=== PATIENT | female | born 1970 | race Caucasian/White ===

== ENCOUNTER 2019-04-27 13:33 | Outpatient (CLI) | payer MEDICAID | END 2019-04-27 13:34 | disposition critical access hospital (66) | LOC: EMS 13:33 | PROVIDERS: ATTEND Surgery | DX: R07.89 Other chest pain (principal); R11.0 Nausea; R06.09 Other forms of dyspnea | CPT/HCPCS: A0425; A0427; A0999 ==

== ENCOUNTER 2019-04-27 14:00 | Emergency (ER) | payer MEDICAID ==
[2019-04-27 14:31] LABS: BASOPHILS % (AUTO) 0.4 %; EOSINOPHILS % (AUTO) 0.4 %; HGB - HEMOGLOBIN 12.3 g/dL (12.0-16.0); LYMPHOCYTES # (AUTO) 2.3 10^3/uL (1.5-3.5); LYMPHOCYTES % (AUTO) 46.9 %; MEAN CORPUSCULAR HEMOGLOBIN 30.7 pg (27.0-31.0); MEAN CORPUSCULAR HGB CONC 33.2 g/dL (32.0-36.0); MEAN CORPUSCULAR VOLUME 92.3 fL (81.0-99.0); MONOCYTES # (AUTO) 0.3 10^3/uL (0.0-1.0); MONOCYTES % (AUTO) 5.8 %; NEUTROPHILS # (AUTO) 2.2 10^3/uL (1.5-6.6); NEUTROPHILS % (AUTO) 46.3 %; PLT - PLATELET COUNT 205 10^3/uL (130-450); RED BLOOD COUNT 4.01 10^6/uL (4.20-5.40); RED CELL DISTRIBUTION WIDTH 13.3 % (12.0-15.0); WHITE BLOOD COUNT 4.8 x10^3/uL (4.8-10.8)
[2019-04-27] MEDS ORDERED: METOPROLOL 5 MG/5 ML VIAL IVP STA ×2 (14:31→15:18)
--- NOTE | 2019-04-27 14:32 | ED Physician Documentation ---
PD HPI CHEST PAIN - Stated complaint Stated Complaint: CP - Chief complaint Chief Complaint: Cardiac - History obtained from History obtained from: Patient (This is a marta 48-year-old woman whose had intermittent sometimes exertional and sometimes a month. It happens maybe every other day and last 10 to 20 minutes at a time. It is pretty typical, substernal chest pressure radiating to the anterior left shoulder, she gets dizzy and weak with it. She is currently pain-free. She has no personal history of heart disease but has a pretty bad family history including a brother with an NH at approximately age 50, a mom with an NH at age 50, a dad who of heart disease at 49.) Review of Systems Ten Systems: 10 systems reviewed and negative Constitutional: denies: Fever, Chills Nose: denies: Rhinorrhea / runny nose, Congestion Throat: denies: Dental pain / toothache, Sore throat Cardiac: reports: Chest pain / pressure. denies: Palpitations, Pedal edema, Calf pain Respiratory: denies: Dyspnea PD PAST MEDICAL HISTORY - Allergies Allergies/Adverse Reactions: Allergies Allergy/AdvReac Type Severity Reaction Status Date / Time No Known Drug Allergies Allergy Verified 04/27/19 14:04 PD ED PE NORMAL - Vitals Vital signs reviewed: Yes - General General: Alert and oriented X 3, No acute distress - HEENT HEENT: PERRL, EOMI - Neck Neck: Supple, no meningeal sign, No bony TTP - Cardiac Cardiac: RRR, No murmur - Respiratory Respiratory: No respiratory distress, Clear bilaterally - Abdomen Abdomen: Soft, Non tender - Extremities Extremities: No deformity, No edema, No calf tenderness / cord - Neuro Neuro: Normal speech - Psych Psych: Normal mood, Normal affect Results - Vitals Vitals: Vital Signs - 24 hr 04/27/19 04/27/19 14:00 16:00 Temperature 36.6 C Heart Rate 67 68 Respiratory 15 16 Rate Blood Pressure 132/77 H 133/71 H O2 Saturation 100 99 Oxygen O2 Source Room air - Labs Labs: Laboratory Tests 04/27/19 04/27/19 04/27/19 14:27 14:27 14:27 WBC 4.8 RBC 4.01 L Hgb 12.3 Hct 37.0 MCV 92.3 MCH 30.7 MCHC 33.2 RDW 13.3 Plt Count 205 MPV 11.0 H Neut # (Auto) 2.2 Lymph # (Auto) 2.3 [place] # (Auto) 0.3 Eos # (Auto) 0.0 Baso # (Auto) 0.0 Absolute Nucleated RBC 0.00 Nucleated RBC % 0.0 Sodium 142 Potassium 2.7 L Chloride 108 Carbon Dioxide 21 Anion Gap 13.0 BUN 8 Creatinine 0.6 Estimated GFR (MDRD) 108 Glucose 89 Calcium 9.0 Total Bilirubin 0.7 AST 25 ALT 20 Alkaline Phosphatase 60 Troponin I High Sens < 2.3 L Total Protein 7.6 Albumin 4.1 Globulin 3.5 Albumin/Globulin Ratio 1.2 Lipase 27 - Rads (name of study) CCTA Chest Radiology: Final report received (no CAD) PD MEDICAL DECISION MAKING - ED course ED course: 48-year-old woman with a pretty good history for intermittent angina although a lot of pain is at rest and a bad family history, however CT coronary angiography and troponin were neg Departure - Departure Disposition: 01 Home, Self Care Clinical Impression: Chest pain Qualifiers: Chest pain type: unspecified Qualified Code(s): R07.9 - Chest pain, unspecified Condition: Good Record reviewed to determine appropriate education?: Yes Instructions: ED Chest Pain NonCardiac Comments: Your CAT scan of your chest shows no coronary disease, this is an excellent predictor that the chance of you having a cardiac event in the near future is very very low. Return for new or worsening symptoms, follow-up with your doctor, next available appointment.
[2019-04-27 14:45] LABS: ALBUMIN 4.1 g/dL (3.2-5.5); ALBUMIN/GLOBULIN RATIO 1.2 (1.0-2.2); BILIRUBIN,TOTAL 0.7 mg/dL (0.2-1.0); CREATININE 0.6 mg/dL (0.4-1.0); TOTAL PROTEIN 7.6 g/dL (6.7-8.2)
--- NOTE | 2019-04-27 14:56 | XRAY Report ---
Reason: chest pain Procedure Date: 04/27/2019 Accession Number: [id number] / [id number] Procedure: XR - Chest 1 View X-Ray CPT Code: 94640 Final Report FULL RESULT: EXAM: CHEST RADIOGRAPHY EXAM DATE: 04/27/2019 02:26 PM. CLINICAL HISTORY: Chest pain. Nausea. COMPARISON: None. TECHNIQUE: 1 view. FINDINGS: Lungs/Pleura: No focal opacities evident. No pleural effusion. No pneumothorax. Mediastinum: Heart size is normal. Aorta is mildly tortuous. Other: Mild dextroscoliosis of the midthoracic spine. IMPRESSION: 1. No acute disease in the chest. RADIA
[2019-04-27] MEDS ORDERED: IOPAMIDOL-370 100 ML VIAL ONE ×2 (14:57→14:58)
[2019-04-27] MEDS ORDERED: NITROGLYCERIN SL 0.4 MG TABLET SL STA (15:18)
[2019-04-27] MEDS ORDERED: IBUPROFEN 600 MG TABLET PO STA (16:00)
--- NOTE | 2019-04-27 16:48 | CT Report ---
Reason: Chest pain Procedure Date: 04/27/2019 Accession Number: [id number] / [id number] Procedure: CT - ANGIO HEART - CCTA W/WO CPT Code: 16831 Final Report FULL RESULT: EXAM: CORONARY ARTERY CTA EXAM DATE: 04/27/2019 03:38 PM. CLINICAL HISTORY: Chest pain COMPARISON: None. TECHNIQUE: Axial sections were obtained through the heart following the intravenous administration of . 3D reconstructions were obtained. In accordance with CT protocol optimization, one or more of the following dose reduction techniques were utilized for this exam: automated exposure control, adjustment of mA and/or KV based on patient size, or use of iterative reconstructive technique. FINDINGS: CALCIUM SCORE: The LMA equals 0. The LAD equals 0. The left circumflex equals 0. The RCA equals 0. The total calcium score is 0. DOMINANT ARTERY: Right coronary artery LEFT MAIN: The left main coronary artery is normal in course and caliber. LEFT ANTERIOR DESCENDING: The left anterior descending artery is normal in course and caliber. The first diagonal branches without evidence of visible stenosis. LEFT CIRCUMFLEX: The left circumflex artery is normal in course and caliber. RIGHT CORONARY ARTERY: The right coronary artery demonstrates a normal course and caliber. The PDA is diminutive. The posterior lateral branch is patent. THORACIC AORTA: The sinuses of Valsalva measure 2.9 cm. The sinotubular junction measures 2.4 cm. The proximal ascending thoracic aorta measures 2.8 cm. The visualized aorta is without evidence of aneurysmal dilatation or dissection. LEFT ATRIAL APPENDAGE: The left atrial appendage is without evidence of filling defect. PULMONARY ARTERIES: The visualized opacified pulmonary arteries are without evidence of a filling defect. CHEST/UPPER ABDOMEN: There is no mediastinal mass. The visualized lungs are without evidence of a mass or infiltrate. The visualized upper visualized upper abdominal organs are without evidence of an enhancing mass. IMPRESSION: Calcium score of 0. No evidence of coronary artery disease. CAD-RADS 0. RADIA
[2019-04-27 16:51] VITALS: BP 133/71
[2019-04-27] MEDS ORDERED: IOPAMIDOL-370 100 ML VIAL IVP ONE (17:02)
== END 2019-04-27 17:16 | disposition home or self-care (01) ==
LOC: ED 14:00
DX: R07.9 Chest pain, unspecified (principal)
CPT/HCPCS: 36415; 71045; 75572; 80053; 83690; 84484; 85025; 93005; 96374; 99283; 99284; A9270; Q9967

== ENCOUNTER 2019-05-02 08:35 | Outpatient (CLI) | payer MEDICAID ==
--- NOTE | 2019-05-02 15:53 | Mammography Report ---
Reason: ROUTINE MAMMO Procedure Date: 05/02/2019 Accession Number: [id number] / [id number] Procedure: MGN - Screening Mammo Dig Bilat CPT Code: Final Report FULL RESULT: EXAM: Screening Mammo Dig Bilat DATE: 05/02/2019 9:06 AM CLINICAL HISTORY: Baseline examination. TECHNIQUE: (B) - Bilateral CC and MLO views were obtained. COMPARISON: None PARENCHYMAL PATTERN: (A) - The breasts demonstrate scattered fibroglandular densities bilaterally. FINDINGS: There are no suspicious masses, calcifications, or areas of distortion. IMPRESSION: Negative examination. BI-RADS category 1. RECOMMENDATION: (ANNUAL) - Recommend routine annual screening mammography. BI-RADS CATEGORY: (1) - Negative. STANDARD QUALIFYING STATEMENTS: 1. This examination was not reviewed with the aid of Computer-Aided Detection (CAD). 2. A negative or benign imaging report should not preclude biopsy if clinically suspicious findings are present. 3. Dense breasts may obscure an underlying neoplasm. 4. This examination was reviewed without the aid of 3D breast imaging (tomosynthesis).
== END 2019-05-02 08:36 | disposition home or self-care (01) ==
LOC: DI.N 08:35
PROVIDERS: ATTEND Registered Nurse
DX: Z12.31 Encounter for screening mammogram for malignant neoplasm of breast (principal)
CPT/HCPCS: 77067

== ENCOUNTER 2019-05-18 10:05 | Outpatient (CLI) | payer MEDICAID ==
[2019-05-18 20:13] LABS: BASOPHILS % (AUTO) 0.4 %; EOSINOPHILS % (AUTO) 0.7 %; HGB - HEMOGLOBIN 12.9 g/dL (12.0-16.0); LYMPHOCYTES # (AUTO) 1.4 10^3/uL (1.5-3.5); LYMPHOCYTES % (AUTO) 26.4 %; MEAN CORPUSCULAR HEMOGLOBIN 30.4 pg (27.0-31.0); MEAN CORPUSCULAR HGB CONC 32.2 g/dL (32.0-36.0); MEAN CORPUSCULAR VOLUME 94.4 fL (81.0-99.0); MEAN PLATELET VOLUME 11.8 fL (7.9-10.8); MONOCYTES # (AUTO) 0.3 10^3/uL (0.0-1.0); NEUTROPHILS # (AUTO) 3.6 10^3/uL (1.5-6.6); NEUTROPHILS % (AUTO) 66.1 %; PLT - PLATELET COUNT 226 10^3/uL (130-450); RED BLOOD COUNT 4.25 10^6/uL (4.20-5.40); WHITE BLOOD COUNT 5.5 x10^3/uL (4.8-10.8)
[2019-05-18 20:32] LABS: ALBUMIN 4.1 g/dL (3.2-5.5); ALBUMIN/GLOBULIN RATIO 1.2 (1.0-2.2); ALKALINE PHOSPHATASE 57 IU/L (42-121); ALT ALANINE AMINOTRANSFERASE 21 IU/L (10-60); AST ASPARTATE AMINOTRANSFERASE 27 IU/L (10-42); BILIRUBIN,TOTAL 0.8 mg/dL (0.2-1.0); BUN - BLOOD UREA NITROGEN 9 mg/dL (6-20); CALCIUM 8.4 mg/dL (8.5-10.3); CARBON DIOXIDE - CO2 24 mmol/L (21-32); CHLORIDE 107 mmol/L (101-111); CHOL/HDL RATIO 2.8 (<4.4); CHOLESTEROL 160 mg/dL; CREATININE 0.6 mg/dL (0.4-1.0); GFR - MDRD 108 (>89); GLUCOSE 86 mg/dL (70-100); HDL CHOLESTEROL 57 mg/dL; LDL CHOLESTEROL,CALCULATED 91 mg/dL; LDL/HDL RATIO 1.6 (<4.4); SODIUM 138 mmol/L (135-145); TOTAL PROTEIN 7.4 g/dL (6.7-8.2); VLDL CHOLESTEROL 12 mg/dL
[2019-05-20 14:05] LABS: HIV AG/AB 4TH GEN NON-REACTIVE (NON-REACTIVE)
== END 2019-05-18 10:06 | disposition home or self-care (01) ==
LOC: LAB.S 10:05
PROVIDERS: ATTEND Registered Nurse
DX: I10 Essential (primary) hypertension (principal); F43.21 Adjustment disorder with depressed mood; R51 Headache; Z83.3 Family history of diabetes mellitus; Z20.2 Contact with and (suspected) exposure to infections with a predominantly sexual mode of transmission
CPT/HCPCS: 36415; 80053; 80061; 83721; 84443; 85025; 86704; 87389

== ENCOUNTER 2019-06-29 12:15 | Outpatient (CLI) | payer MEDICAID ==
[2019-06-29 17:45] LABS: CALCIUM 9.2 mg/dL (8.5-10.3); CREATININE 0.5 mg/dL (0.4-1.0); MAGNESIUM 2.1 mg/dL (1.7-2.8)
== END 2019-06-29 23:59 | disposition home or self-care (01) ==
LOC: LAB.S 12:15
PROVIDERS: ATTEND Physician Assistant
DX: I10 Essential (primary) hypertension (principal); R00.2 Palpitations
CPT/HCPCS: 36415; 80048; 83735

== ENCOUNTER 2019-07-07 10:32 | Outpatient (CLI) | payer MEDICAID ==
[2019-07-07 18:14] LABS: CALCIUM 9.2 mg/dL (8.5-10.3); CREATININE 0.6 mg/dL (0.4-1.0)
== END 2019-07-07 10:33 | disposition home or self-care (01) ==
LOC: LAB.S 10:32
PROVIDERS: ATTEND Physician Assistant
DX: E87.6 Hypokalemia (principal)
CPT/HCPCS: 36415; 80048

== ENCOUNTER 2022-07-10 09:16 | Outpatient (CLI) | payer MEDICAID ==
[2022-07-10 12:15] LABS: CALCIUM 9.1 mg/dL (8.5-10.3); CREATININE 0.5 mg/dL (0.4-1.0); POTASSIUM 3.7 mmol/L (3.5-5.0)
== END 2022-07-10 09:17 | disposition home or self-care (01) ==
LOC: LAB.N 09:16
PROVIDERS: ATTEND Internal Medicine
DX: I10 Essential (primary) hypertension (principal)
CPT/HCPCS: 36415; 80048

== ENCOUNTER 2023-07-06 11:00 | Outpatient (CLI) | payer MEDICAID ==
[2023-07-06 17:59] LABS: EOSINOPHILS # (AUTO) 0.1 10^3/uL (0.0-0.7); EOSINOPHILS % (AUTO) 1.9 %; HCT - HEMATOCRIT 43.9 % (37.0-47.0); HGB - HEMOGLOBIN 14.1 g/dL (12.0-16.0); LYMPHOCYTES # (AUTO) 2.3 10^3/uL (1.5-3.5); LYMPHOCYTES % (AUTO) 42.6 %; MEAN CORPUSCULAR HEMOGLOBIN 30.3 pg (27.0-31.0); MEAN CORPUSCULAR HGB CONC 32.1 g/dL (32.0-36.0); MEAN CORPUSCULAR VOLUME 94.4 fL (81.0-99.0); MONOCYTES # (AUTO) 0.3 10^3/uL (0.0-1.0); MONOCYTES % (AUTO) 4.9 %; NEUTROPHILS # (AUTO) 2.7 10^3/uL (1.5-6.6); NEUTROPHILS % (AUTO) 50.4 %; PLT - PLATELET COUNT 248 10^3/uL (130-450); RED BLOOD COUNT 4.65 10^6/uL (4.20-5.40); RED CELL DISTRIBUTION WIDTH 13.7 % (12.0-15.0); WHITE BLOOD COUNT 5.3 x10^3/uL (4.8-10.8)
[2023-07-06 18:18] LABS: ALBUMIN 4.4 g/dL (3.2-5.5); ALBUMIN/GLOBULIN RATIO 1.4 (1.0-2.2); ALKALINE PHOSPHATASE 71 IU/L (42-121); ALT ALANINE AMINOTRANSFERASE 16 IU/L (10-60); AST ASPARTATE AMINOTRANSFERASE 18 IU/L (10-42); BILIRUBIN,TOTAL 0.5 mg/dL (0.2-1.0); BUN - BLOOD UREA NITROGEN 11 mg/dL (6-20); CALCIUM 9.4 mg/dL (8.5-10.3); CARBON DIOXIDE - CO2 26 mmol/L (21-32); CHLORIDE 105 mmol/L (101-111); CHOL/HDL RATIO 2.7 (<4.4); CHOLESTEROL 174 mg/dL; CREATININE 0.6 mg/dL (0.6-1.3); GFR - MDRD 106 (>89); GLUCOSE 80 mg/dL (74-104); HDL CHOLESTEROL 64 mg/dL; LDL CHOLESTEROL,CALCULATED 86 mg/dL; LDL/HDL RATIO 1.3 (<4.4); POTASSIUM 3.6 mmol/L (3.5-4.5); SODIUM 137 mmol/L (135-145); TOTAL PROTEIN 7.6 g/dL (6.4-8.9); TRIGLYCERIDES 121 mg/dL (48-352); VLDL CHOLESTEROL 24 mg/dL
[2023-07-06 18:36] LABS: THYROID STIMULATING HORMONE 1.05 uIU/mL (0.34-5.60)
[2023-07-06 18:41] LABS: RHEUMATOID FACTOR NEGATIVE (Negative)
== END 2023-07-06 11:01 | disposition home or self-care (01) ==
LOC: LAB.N 11:00
PROVIDERS: ATTEND Registered Nurse
DX: Z13.228 Encounter for screening for other metabolic disorders (principal); Z13.220 Encounter for screening for lipoid disorders; Z13.29 Encounter for screening for other suspected endocrine disorder; Z13.0 Encounter for screening for diseases of the blood and blood-forming organs and certain disorders involving the immune mechanism; R21 Rash and other nonspecific skin eruption
CPT/HCPCS: 36415; 80053; 80061; 83721; 84443; 85025; 85651; 86140; 86200; 86430

== ENCOUNTER 2023-09-03 14:00 | Outpatient (CLI) | payer MEDICAID | END 2023-09-03 14:01 | disposition home or self-care (01) | LOC: DI 14:00 | PROVIDERS: ATTEND Registered Nurse | DX: R05.9 Cough, unspecified (principal); R42 Dizziness and giddiness; R00.2 Palpitations; I08.1 Rheumatic disorders of both mitral and tricuspid valves | CPT/HCPCS: 93307 ==

== ENCOUNTER 2023-11-03 12:30 | Outpatient (CLI) | payer MEDICAID ==
--- NOTE | 2023-11-03 17:18 | XRAY Report ---
PROCEDURE: Knee 3V RT INDICATIONS: EFFUSION OF RIGHT KNEE TECHNIQUE: 3 views of the knee(s) were acquired. COMPARISON: None. FINDINGS: Bones: No fractures or dislocations. No suspicious bony lesions. : 2, (65),; osteophytes. Soft tissues: No knee joint effusion. No suspicious soft tissue calcifications or masses. IMPRESSION: No acute bony abnormality. No knee joint effusion. Mild degenerative change. Reviewed by: Denice Morrow MD on 11/03/2023 5:17 PM PDT Approved by: Denice Morrow MD on 11/03/2023 5:17 PM PDT Station ID: [id number]
== END 2023-11-03 12:45 | disposition home or self-care (01) ==
LOC: DI.N 12:30
PROVIDERS: ATTEND Physician Assistant
DX: M17.11 Unilateral primary osteoarthritis, right knee (principal)